=== PATIENT | female | born 1985 | race Caucasian/White ===

== ENCOUNTER 2023-11-11 06:43 | Emergency (ER) | payer MEDICAID ==
[2023-11-11 06:51] VITALS: TEMP 97.6
[2023-11-11 07:53] LABS: INFLUENZA A NEGATIVE (NEGATIVE); INFLUENZA B NEGATIVE (NEGATIVE); RESPIRATORY SYNCTIAL VIRUS NEGATIVE (NEGATIVE); SARS-CoV-2 Xpert Express NEGATIVE (NEGATIVE)
[2023-11-11] MEDS ORDERED: Rocephin 1000 MG INJ ONE (07:59)
[2023-11-11] MEDS ORDERED: solu-MEDROL ONE (07:59)
[2023-11-11] MEDS ORDERED: XYLOCAINE 1% HCL 20 ML MDV ONE (07:59)
[2023-11-11] MEDS ORDERED: Sterile H2O 10 ml IJ ONE (07:59)
[2023-11-11] MEDS: Rocephin 1000 MG INJ IM ONE (08:01)
[2023-11-11] MEDS: solu-MEDROL 125 MG, Sterile H2O 10 ml 2 ML IM ONE (08:01)
--- NOTE | 2023-11-11 08:10 | ERPHSYRPT ---
- History of Present Illness Time Seen by Provider: 11/11/23 07:15 Source: patient Exam Limitations: no limitations Patient Subjective Stated Complaint: sore throat, cough, headache, body aches, fatigue, sob, red eyes Triage Nursing Assessment: Pt ambulated into ER without difficulty. Pt alert and oriented x4. Pt c/o sore throat, headache, prod cough with gupta/green sputum, body aches, fatigue, and red eyes. Pt states, "I feel like my throat is tight, like it's hard to catch my breath". Lungs clear, heart tones reg. Pt's throat is red and the sclera of her eyes are pink and watering. 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 In the last week she has had symptoms of red burning eyes, headache, body aches and productive cough with gupta-greenish sputum. She has a sore throat as well. When she is coughing she gets short of breath. She has had no nausea vomiting or diarrhea symptoms. She does not have chest pain. Timing/Duration: week(s) (1 week), worse Possible Cause: no prior episodes Modifying Factors: Improves With: coughing (Productive gupta/greenish sputum) Associated Symptoms: cough, headache, muscle aches, shortness of breath (Only with coughing), sore throat Allergies/Adverse Reactions: No Known Drug Allergies Allergy (Verified 11/11/23 07:04) Hx Tetanus, Diphtheria Vaccination/Date Given: Yes Hx Influenza Vaccination/Date Given: No Hx Pneumococcal Vaccination/Date Given: No Travel Risk - International Travel Have you traveled outside of the country in past 3 weeks: No - Emerging Infectious Disease Are you exhibiting symptoms associated with any current EIDs: Yes Symptoms: Cough: New Onset, Headaches/Body Aches/, Loss of taste or smell, Red Eyes, Shortness of Breath - Review of Systems Constitutional: Fatigue Eyes: No Symptoms Ears, Nose, & Throat: Throat Pain Respiratory: Cough Cardiac: No Symptoms Abdominal/Gastrointestinal: No Symptoms Musculoskeletal: Arthralgias, Myalgias Skin: No Symptoms Neurological: No Symptoms Psychological: No Symptoms Endocrine: No Symptoms Hematologic/Lymphatic: No Symptoms Immunological/Allergic: No Symptoms All Other Systems: Reviewed and Negative - Past Medical History Pertinent Past Medical History: Yes Neurological History: Migraines Cardiac History: Arrhythmia Musculoskeletal History: Fractures GI Medical History: Pancreatitis Female Reproductive Disorders: Endometriosis Other Medical History: orbital cellulitis, rib fractures, right ankle fracture, left femur fracture, ocular migraines, tachycardia - Past Surgical History Past Surgical History: Yes Gastrointestinal: Appendectomy, Exploratory Laparoscopy Female Surgical History: Section Other Surgical History: sinus surgery, ablation related to endometriosis - Female History Hx Last Menstrual Period: 10/09/23 Hx Now: No - Social History Smoking Status: Former smoker Exposure to second hand smoke: No Drug Use: none - Social Determinants of Health Will the patient participate in the screening: Yes Do you worry about a steady place to live?: No Do you have any problems with any of the following?: No known problems In the past 12 months,have you had to go without utilities?: No Transportation Issues: No Has anyone in your support network made you feel unsafe?: No Have you or anyone in your house had to go without enough: No - Nursing Vital Signs Nursing Vital Signs: Initial Vital Signs Temperature 97.6 F 11/11/23 06:49 Pulse Rate 88 11/11/23 06:49 Respiratory Rate 18 11/11/23 06:49 Blood Pressure 136/95 11/11/23 06:49 O2 Sat by Pulse Oximetry 98 11/11/23 06:49 Pain Scale Pain Intensity 4 - Physical Exam General Appearance: no apparent distress, alert, anxiety Eye Exam: PERRL/EOMI, eyes nml inspection Ears, Nose, Throat Exam: moist mucous membranes, pharyngeal erythema Neck Exam: normal inspection, non-tender, supple, full range of motion Respiratory Exam: normal breath sounds, lungs clear, airway intact, No chest tenderness, No respiratory distress Cardiovascular Exam: regular rate/rhythm, normal heart sounds, normal peripheral pulses Gastrointestinal/Abdomen Exam: soft, normal bowel sounds, No tenderness Pelvic Exam: not done Rectal Exam: not done Back Exam: normal inspection, normal range of motion, No CVA tenderness, No vertebral tenderness Extremity Exam: normal inspection, normal range of motion, pelvis stable Neurologic Exam: alert, oriented x 3, cooperative, 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, nml cerebellar function, nml station & gait, sensation nml Skin Exam: normal color, warm, dry Lymphatic Exam: No adenopathy SpO2 Interpretation: normal SpO2: 99 O2 Delivery: Room Air - Course Nursing assessment & vital signs reviewed: Yes Ordered Tests: Active Orders 24 hr Category Date Time Status CHEST 1 VIEW (PORTABLE) Stat Exams 11/11/23 07:50 Taken Medication Summary Discontinued Medications Generic Name Dose Route Start Last Admin Trade Name Anand PRN Reason Stop Dose Admin Ceftriaxone Sodium 1,000 mg 11/11/23 07:49 11/11/23 08:01 Ceftriaxone Sodium 1000 Mg Inj Vial IM 11/11/23 07:50 1,000 mg STAT ONE Administration Ceftriaxone Sodium Confirm 11/11/23 07:59 Ceftriaxone Sodium 1000 Mg Inj Vial Administered 11/11/23 08:00 Dose 1,000 mg .ROUTE .STK-MED ONE Methylprednisolone Sodium 0 mg 11/11/23 07:49 11/11/23 08:01 Succinate 125 mg/ Sterile IM 11/11/23 07:50 125 mg Water 2 ml STAT ONE Administration Lidocaine HCl Confirm 11/11/23 07:59 Lidocaine Hcl 1% 20 Ml Mdv 20 Ml Ml Administered 11/11/23 08:00 Dose 1 ml .ROUTE .STK-MED ONE Methylprednisolone Sodium Succinate Confirm 11/11/23 07:59 Methylprednis Sod Succ 125 Mg/2 Ml Vial Administered 11/11/23 08:00 Dose 125 mg .ROUTE .STK-MED ONE Sterile Water Confirm 11/11/23 07:59 Water For Injection,Sterile 10 Ml Vial Administered 11/11/23 08:00 Dose 10 ml IJ .STK-MED ONE Lab/Rad Data: Laboratory Results 11/11/23 11/11/23 Range/Units 07:16 07:16 Influenza Type A Ag NEGATIVE (NEGATIVE) Influenza Type B Ag NEGATIVE (NEGATIVE) RSV (PCR) NEGATIVE (NEGATIVE) SARS-CoV-2 (PCR) NEGATIVE (NEGATIVE) Group A Strep Antibody NOT DETECTED (NEGATIVE) - Progress Progress: unchanged Air Movement: good Progress Note: 11/11/23 08:08 My medical decision making of the assignment of low to moderate complexity of this patient is based on review of the patient's past medical history, review of the patient's medication list, reviewed patient drug allergy list, history pre sent illness and physical findings on examination. The workup in this patient includes viral swabs, group A strep swab and chest x-ray. We will also provide the patient with an injection of Solu-Medrol 125 mg and 1 g of Rocephin, both intramuscularly. Differential diagnosis includes but is not limited to strep pharyngitis, viral illness, upper respiratory infection, pneumonia. 11/11/23 08:54 I interpreted the patient's laboratory data results. Based on the laboratory data results, there are no emergent or acute medical issues. The preliminary chest x-ray report was interpreted by me. There is no acute cardiopulmonary processes. Blood Culture(s) Obtained: No Antibiotics given: Yes Counseled pt/family regarding: lab results, diagnosis, need for follow-up, rad results Medical Desision Making - Diagnostic Testing Diagnostic test were ordered, analyzed, and reviewed by me: Yes Radiological Interpretation: Interpreted by me - Risk of complications The pt has a mod risk of morbidity or mortality based on: Need for prescription drug management - Departure Departure Disposition: Home Clinical Impression: Upper respiratory infection Condition: Stable Critical Care Time: No Referrals: DOCTOR,NO FAMILY [Primary Care Provider] - Follow up/PCP as directed Additional Instructions: Drink plenty of fluids. Take your medications as prescribed. Call your primary care provider today, 11/11/2023, to make arrangements for follow-up appointment to be seen in the next 5 to 7 days. Prescriptions: Prednisone 10 mg [Deltasone 10 mg] 10 mg PO TID #12 tablet Hydrocodone/Acetaminophen [Hydrocodone-Acetamn 7.5-325/15] 10 ml PO Q8H PRN #120 ml MDD 30 ml PRN Reason: Cough Azithromycin 250 mg [Zithromax 250 MG TABLET] 250 mg PO ZPACK #6 tablet
[2023-11-11 09:03] VITALS: BP 105/68; PULSE 67; RESP 16; O2SAT 100
--- NOTE | 2023-11-11 09:34 | XRAY ---
Indication: Cough. Comparison: None Portable chest demonstrates normal heart and lungs with incidental right mid lung calcified granuloma. 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
== END 2023-11-11 09:07 | disposition home or self-care (01) ==
LOC: ED 06:43
DX: J06.9 Acute upper respiratory infection, unspecified (principal); R05.1 Acute cough; R51.9 Headache, unspecified; M79.10 Myalgia, unspecified site; J02.9 Acute pharyngitis, unspecified; Z79.52 Long term (current) use of systemic steroids; Z79.891 Long term (current) use of opiate analgesic; Z79.899 Other long term (current) drug therapy
CPT/HCPCS: 0241U; 71045; 87651; 96372; 99284; J0696; J2919